=== PATIENT | female | born 1955 | race Caucasian/White ===

== ENCOUNTER 2017-12-27 12:18 | Outpatient (CLI) | payer BC | END 2017-12-27 12:19 | disposition home or self-care (01) | LOC: BICMAMMO 12:18 | PROVIDERS: ATTEND Obstetrics & Gynecology Gynecology | DX: Z12.31 Encounter for screening mammogram for malignant neoplasm of breast (principal) | CPT/HCPCS: 77063; 77067 ==

== ENCOUNTER 2019-01-27 08:30 | Outpatient (CLI) | payer BC ==
[2019-01-27 10:12] LABS: Estimated GFR-MDRD - POC Greater than 90
--- NOTE | 2019-01-27 10:33 | MRI ---
MRI CERVICAL SPINE WITHOUT CONTRAST: 01/27/2019 HISTORY: Cervical pain. Prior cervical spine surgery. Cervical dystonia. COMPARISON: None. TECHNIQUE: Multiplanar, multisequence MR imaging of the cervical spine obtained without contrast. FINDINGS: The sagittal STIR imaging demonstrates no focal area of osseous marrow edema. There is multilevel an terior diskectomy and fusion hardware spanning the C4-C5, C5-C6, and C6-C7 levels. There is no anterolisthesis or retrolisthesis noted within the cervical spine. C2-C3: There is mild bilateral facet hypertrophy with no significant central canal or neural foramin al stenosis. C3-C4: There is facet and uncovertebral osteophyte formation on the left. There is mild left neural foraminal stenosis. There is no central canal or right neural foraminal stenosis. C4-C5: There is mild bilateral facet and uncovertebral osteophyte formation. No significant central canal stenosis. Mild right neural foraminal stenosis. C5-C6: Mild left-sided uncovertebral osteophyte formation with no significant central canal or neura l foraminal stenosis. C6-C7: Bilateral uncovertebral osteophyte formation, left greater than right. Mild bilateral neural foraminal stenosis, left greater than right. No significant central canal stenosis. C7-T1: Mild bilateral facet hypertrophy. No significant central canal or neural foraminal stenosis. No focal area of abnormal signal intensity is identified within the cervical cord. IMPRESSION: Multilevel degenerative change within the cervical spine. No focal abnormal cervical cord signal and no significant central canal stenosis noted. POS: [facility]
--- NOTE | 2019-01-27 11:06 | MRI ---
MRI BRAIN WITH AND WITHOUT CONTRAST: Date: 01/27/19 INDICATION: Migraine, intractable headache. Comparison made to MRI brain dated 02/13/16. FINDINGS: Ventricles have normal size and position. There is no evidence of restricted diffusion. Mild chronic ischemic white matter changes are again noted on FLAIR sequence. These findings are stable from 2016 with a few scattered white matter hyperintensities again noted. No abnormal enhancement identified on postcontrast images. Intracranial internal carotid arteries and cerebral arteries show expected flow-voids. There is no evidence of dural venous thrombus. IMPRESSION: Mild chronic ischemic white matter changes which are stable from prior exam of 2016. No acute process or interval change noted. POS: OFF
[2019-01-27] MEDS ORDERED: Gadobenate Dimeglumine 529 MG/1 ML (20ML VIAL) ONE (11:12)
== END 2019-01-27 08:31 | disposition home or self-care (01) ==
LOC: BICMRI 08:30
PROVIDERS: ATTEND Psychiatry & Neurology Neurology
DX: G43.019 Migraine without aura, intractable, without status migrainosus (principal); G24.3 Spasmodic torticollis; M47.812 Spondylosis without myelopathy or radiculopathy, cervical region
CPT/HCPCS: 70553; 72141; 82565; A9577